=== PATIENT | male | born 1950 | race Caucasian/White ===

== ENCOUNTER 2020-10-26 08:13 | Inpatient (IN) | payer MEDICARE ==
[~2020-10-26] VITALS: Ht 180.3 cm; Wt 82.5 kg
--- NOTE | 2020-10-26 08:20 | NUR ---
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
[2020-10-26] MEDS ORDERED: SODIUM CHLORIDE FLUSH 10ML SYR IVF ONE (08:30)
--- NOTE | 2020-10-26 09:04 | NUR ---
PT STATES DIFFUSE ABDOMINAL PAIN WITH NAUSEA STARTED APPROXIMATELY 6 PM LAST NIGHT, CONTINUOUS IN NATURE. IV ESTABLISHED WITH LABS OBTAINED, URINE SAMPLE OBTAINED AND PLACED ON MONITOR WITH CALL LIGHT IN REACH
[2020-10-26 09:08] LABS: BASOPHILS % (AUTO) 1 % (0-1); EOSINOPHILS % (AUTO) 1 % (1-7); LYMPHOCYTES % (AUTO) 10 % (22-44); MEAN CORPUSCULAR HGB CONC 34.8 g/dL (33.2-36.2); MEAN PLATELET VOLUME 8.6 fL (7.4-10.4); MONOCYTES % (AUTO) 5 % (2-9); NEUTROPHILS % (AUTO) 83 % (42-75); PLATELET COUNT 249 x10^3/uL (130-400); RED BLOOD COUNT 5.43 x10^6/uL (4.38-5.82); RED CELL DISTRIBUTION WIDTH 13.1 % (9.4-14.8)
[2020-10-26 09:09] LABS: MD NO
[2020-10-26 09:11] LABS: MICROSCOPIC NOT IND
[2020-10-26 09:15] LABS: ALANINE AMINOTRANSFERASE 48 U/L (12-78); ALBUMIN 4.1 g/dL (3.4-5.0); ANION GAP 9 mmol/L (5-15); CALCIUM 9.9 mg/dL (8.5-10.1); CHLORIDE 108 mmol/L (98-107); CREATININE 0.91 mg/dL (0.7-1.3)
[2020-10-26 09:20] LABS: ALKALINE PHOSPHATASE 74 U/L (45-117); TOTAL PROTEIN 7.6 g/dL (6.4-8.2); TROPONIN I < 0.015 ng/mL (0.000-0.045)
--- NOTE | 2020-10-26 09:20 | NUR ---
Recieved report from Ronn LOPEZ
[2020-10-26] MEDS ORDERED: OMNIPAQUE 350 MG/ML, 100ML BOTTLE ONE (09:45)
--- NOTE | 2020-10-26 09:54 | NUR ---
Jorge Luis cohen in [facility] - 10/26/20 at 0955 by KASH Recieved report from Ronn LOPEZ
--- NOTE | 2020-10-26 09:54 | NUR ---
Recieved report from Ronn LOPEZ
--- NOTE | 2020-10-26 09:55 | NUR ---
Pt in CT
--- NOTE | 2020-10-26 10:04 | NUR ---
Pt resting comfortably in bed with friend at bedside. VSS, pt currently rating ab discomfort at 5/10 otheriwse NADN.
[2020-10-26] MEDS ORDERED: HEPARIN 25,000 UNITS/250ML PMX 250 ML ONE (10:51)
[2020-10-26] MEDS ORDERED: HEPARIN 5,000 UNITS/ML, 1ML ONE (10:51)
[2020-10-26] MEDS ORDERED: SODIUM CHLORIDE 0.9% 1,000ML IVBOLUS ONE (11:00)
[2020-10-26] MEDS ORDERED: HEPARIN 5,000 UNITS/ML, 1ML IV ONE (11:00)
[2020-10-26] MEDS ORDERED: HYDROmorphone 1 MG/ML, 1ML INJ IV ONE (11:00)
[2020-10-26] MEDS ORDERED: ONDANSETRON 2MG/ML, 2ML IVPush ONE (11:00)
[2020-10-26] MEDS ORDERED: HEPARIN 5,000 UNITS/ML, 1ML IV PRN (11:00)
[2020-10-26] MEDS: HEPARIN 25,000 UNITS/250ML PMX 250 ML IV PRN (11:05)
--- NOTE | 2020-10-26 11:05 | NUR ---
heparin drip initated per protocol. Dr Olmedo at bedside
[2020-10-26] MEDS ORDERED: HYDROmorphone 1 MG/ML, 1ML INJ ONE (11:09)
[2020-10-26] MEDS ORDERED: ONDANSETRON 2MG/ML, 2ML ONE (11:09)
[2020-10-26] MEDS ORDERED: morphine SULFATE 10 MG/ML, 1ML IVPush PRN (11:30)
[2020-10-26] MEDS ORDERED: HYDROcodone/APAP 5/325 TABLET PO PRN (11:30)
[2020-10-26] MEDS ORDERED: ACETAMINOPHEN 325 MG TABLET PO PRN (11:30)
--- NOTE | 2020-10-26 12:24 | NUR ---
Report given to Jocelyne LOPEZ
[2020-10-26] MEDS: SODIUM CHLORIDE 0.9% 1,000 ML IV SCH ×2 (13:09→21:34)
[2020-10-26 13:33] VITALS: BP 119/74
[2020-10-26 18:22] VITALS: BP 117/76
[2020-10-26] MEDS: ATORVASTATIN 10 MG TABLET PO SCH (20:11)
[2020-10-27 00:02] VITALS: BP 94/57
[2020-10-27 06:48] LABS: BASOPHILS % (AUTO) 0 % (0-1); EOSINOPHILS % (AUTO) 7 % (1-7); LYMPHOCYTES % (AUTO) 22 % (22-44); MEAN CORPUSCULAR HEMOGLOBIN 31.7 pg (27.5-34.5); MEAN CORPUSCULAR HGB CONC 34.9 g/dL (33.2-36.2); MEAN PLATELET VOLUME 8.5 fL (7.4-10.4); MONOCYTES % (AUTO) 8 % (2-9); NEUTROPHILS % (AUTO) 62 % (42-75); PLATELET COUNT 207 x10^3/uL (130-400); RED BLOOD COUNT 4.68 x10^6/uL (4.38-5.82); RED CELL DISTRIBUTION WIDTH 13.1 % (9.4-14.8)
[2020-10-27 06:50] LABS: MD NO
[2020-10-27 06:55] LABS: ALBUMIN 3.2 g/dL (3.4-5.0); ANION GAP 5 mmol/L (5-15); CALCIUM 8.3 mg/dL (8.5-10.1); CHLORIDE 112 mmol/L (98-107)
[2020-10-27 06:59] LABS: ALANINE AMINOTRANSFERASE 35 U/L (12-78); ALKALINE PHOSPHATASE 64 U/L (45-117); BILIRUBIN,TOTAL 0.7 mg/dL (0.2-1.0); CHOL/HDL RATIO 2.5; CHOLESTEROL, TOTAL 149 mg/dL (140-239); CREATININE 0.89 mg/dL (0.7-1.3); HDL CHOL % 40 % (26-37); HDL CHOLESTEROL (DIRECT) 59 mg/dL (40-60); LDL CHOLESTEROL,CALCULATED 74 mg/dL (54-169); LDL/HDL RATIO 1.3 (0.5-3.0); TOTAL PROTEIN 6.2 g/dL (6.4-8.2); TRIGLYCERIDES 80 mg/dL (50-200); VLDL CHOLESTEROL 16 mg/dL (0-25)
[2020-10-27] MEDS: SODIUM CHLORIDE 0.9% 1,000 ML IV SCH ×2 (07:30→18:21)
[2020-10-27 09:10] VITALS: BP 109/70
[2020-10-27] MEDS: HEPARIN 25,000 UNITS/250ML PMX 250 ML IV PRN (10:58)
[2020-10-27 13:08] VITALS: BP 107/71
[2020-10-27 18:41] VITALS: BP 113/72
[2020-10-27] MEDS: ATORVASTATIN 10 MG TABLET PO SCH (20:41)
[2020-10-28 00:22] VITALS: BP 106/69
[2020-10-28] MEDS: SODIUM CHLORIDE 0.9% 1,000 ML IV SCH ×3 (03:41→23:53)
[2020-10-28 05:25] LABS: BASOPHILS % (AUTO) 1 % (0-1); EOSINOPHILS % (AUTO) 5 % (1-7); LYMPHOCYTES % (AUTO) 26 % (22-44); MEAN CORPUSCULAR HEMOGLOBIN 31.4 pg (27.5-34.5); MEAN CORPUSCULAR HGB CONC 34.9 g/dL (33.2-36.2); MEAN PLATELET VOLUME 8.6 fL (7.4-10.4); MONOCYTES % (AUTO) 8 % (2-9); NEUTROPHILS % (AUTO) 60 % (42-75); PLATELET COUNT 194 x10^3/uL (130-400); RED BLOOD COUNT 4.44 x10^6/uL (4.38-5.82); RED CELL DISTRIBUTION WIDTH 13.4 % (9.4-14.8)
[2020-10-28 05:30] LABS: MD NO
[2020-10-28 05:33] LABS: CHLORIDE 112 mmol/L (98-107)
[2020-10-28 05:41] LABS: ALANINE AMINOTRANSFERASE 34 U/L (12-78); ALBUMIN 3.1 g/dL (3.4-5.0); ALKALINE PHOSPHATASE 56 U/L (45-117); ANION GAP 5 mmol/L (5-15); BILIRUBIN,TOTAL 0.7 mg/dL (0.2-1.0); CALCIUM 8.2 mg/dL (8.5-10.1); CREATININE 0.87 mg/dL (0.7-1.3)
[2020-10-28 06:43] VITALS: BP 132/77
[2020-10-28] MEDS: HEPARIN 25,000 UNITS/250ML PMX 250 ML IV PRN (08:17)
[2020-10-28 12:06] VITALS: BP 113/73
[2020-10-28 18:37] VITALS: BP 117/76
[2020-10-28] MEDS: ATORVASTATIN 10 MG TABLET PO SCH (20:05)
[2020-10-29] MEDS: HEPARIN 25,000 UNITS/250ML PMX 250 ML IV PRN (07:27)
[2020-10-29 07:30] VITALS: BP 128/75
[2020-10-29 07:49] LABS: BASOPHILS % (AUTO) 0 % (0-1); EOSINOPHILS % (AUTO) 3 % (1-7); LYMPHOCYTES % (AUTO) 25 % (22-44); MEAN CORPUSCULAR HEMOGLOBIN 31.5 pg (27.5-34.5); MEAN CORPUSCULAR HGB CONC 34.9 g/dL (33.2-36.2); MEAN PLATELET VOLUME 8.4 fL (7.4-10.4); MONOCYTES % (AUTO) 8 % (2-9); NEUTROPHILS % (AUTO) 65 % (42-75); PLATELET COUNT 225 x10^3/uL (130-400); RED BLOOD COUNT 4.93 x10^6/uL (4.38-5.82); RED CELL DISTRIBUTION WIDTH 13.2 % (9.4-14.8)
[2020-10-29 08:01] LABS: ANION GAP 6 mmol/L (5-15); CALCIUM 8.9 mg/dL (8.5-10.1); CHLORIDE 111 mmol/L (98-107); CREATININE 0.96 mg/dL (0.7-1.3)
[2020-10-29 08:27] LABS: MD NO
[2020-10-29] MEDS ORDERED: POTASSIUM CHLORIDE 40 MEQ in SODIUM CHLORIDE 0.9% 1,000 ML IV SCH ×3 (10:00→11:30)
[2020-10-29] MEDS ORDERED: APIXABAN 5 MG TABLET PO SCH (10:30)
[2020-10-29] MEDS ORDERED: POTASSIUM CHLORIDE 20 MEQ TAB.ER.PRT PO ONE (10:30)
[2020-10-29 12:57] VITALS: BP 115/68
[2020-10-29 13:09] VITALS: BP 116/70
[2020-10-29] MEDS ORDERED: APIX5TAB PO (14:06)
[2020-10-29] MEDS ORDERED: ATOR10TA9 PO (14:42)
== END 2020-10-29 16:12 | disposition home or self-care (01) | DRG 441 ==
LOC: ED 09:07 → EDIP 11:05 → 3N 13:09
PROVIDERS: ADMIT Internal Medicine Infectious Disease; ATTEND Internal Medicine Infectious Disease
DX: I81 Portal vein thrombosis (principal); K55.019 Acute (reversible) ischemia of small intestine, extent unspecified; K56.7 Ileus, unspecified; K21.9 Gastro-esophageal reflux disease without esophagitis; E78.5 Hyperlipidemia, unspecified; K22.2 Esophageal obstruction; E87.6 Hypokalemia; Z79.899 Other long term (current) drug therapy
CPT/HCPCS: 36415; 74177; 80048; 80053; 80061; 81003; 83605; 83690; 84145; 84484; 85025; 85520; 87040; 93005; 93975; 96374; 96375; G0378; J1170; J1644; J2405; Q9967; J7030